=== PATIENT | female | born 1940 | race Caucasian/White ===

== ENCOUNTER 2017-12-22 23:24 | Emergency (ER) | payer MEDICARE, OTHER ==
[~2017-12-22] VITALS: Ht 152.4 cm; Wt 78.5 kg
[~2017-12-22 23:24] MED LIST: ALPRAZOLAM0.25 MG PO; ANT12.5; COL100 PO; CYCLOBENZAPRINE5 MG PO; LEXAPRO20 MG PO; NOR10 PO; NOR10T PO; TRAMADOL HCL50 MG PO
[2017-12-22 23:28] VITALS: Ht 152.4 cm; Wt 78.5 kg
[2017-12-23 01:27] LABS: CALCIUM 9.6 mg/dL (8.5-10.1); CARBON DIOXIDE 28.3 mmol/L (21-32); CHLORIDE SERUM 104 mmol/L (98-107); CREATININE SERUM 0.8 mg/dL (0.6-1.0); GLUCOSE SERUM 139 mg/dL (74-106); POTASSIUM SERUM 3.1 mmol/L (3.5-5.1); SODIUM SERUM 141 mmol/L (136-145)
[2017-12-23 01:31] LABS: ALKALINE PHOSPHATASE 101 U/L (46-116); ALT/SGPT 24 U/L (14-59); AST/SGOT 14 U/L (15-37); BILIRUBIN TOTAL 0.37 mg/dL (0.20-1.00); LIPASE 141 IU/L (73-393); TOTAL PROTEIN, SERUM 7.9 g/dL (6.4-8.2)
[2017-12-23 01:35] LABS: BASOPHIL % 0.2 % (0-2); PLATELET COUNT 216 x10^3mcL (130-400); RED CELL DISTRIBUTION WIDTH 14.1 % (11.5-14.5)
[2017-12-23] MEDS ORDERED: BENADRYL ALLERG25 MG (01:54)
[2017-12-23] MEDS ORDERED: HYDROCHLOROTH12.5 M2 (01:55)
[2017-12-23] MEDS ORDERED: OMEPRAZOLE5 GM (01:55)
[2017-12-23] MEDS ORDERED: GOOD SENSE OMEP20 MG (01:56)
[2017-12-23] MEDS ORDERED: CYMBALTA20 M1 (01:57)
[2017-12-23 02:16] LABS: UA SPECIFIC GRAVITY 1.015 (1.005-1.035); microscopic required? YES; urine erythrocyte 3+ (NEGATIVE)
[2017-12-23 05:00] VITALS: BP 148/77
== END 2017-12-23 05:00 | disposition short-term general hospital (02) ==
LOC: ED 23:24
PROVIDERS: Emergency Medicine
DX: N39.0 Urinary tract infection, site not specified (principal); N20.0 Calculus of kidney; I10 Essential (primary) hypertension; Z90.49 Acquired absence of other specified parts of digestive tract; Z88.2 Allergy status to sulfonamides
CPT/HCPCS: J0696; J1885; J2405; J7030

== ENCOUNTER 2018-01-30 10:31 | Inpatient (IN) | payer OTHER, MEDICARE ==
[~2018-01-30] VITALS: Ht 152.4 cm; Wt 76.3 kg
[~2018-01-30 10:31] MED LIST changes: +BENADRYL ALLERG25 MG; +CYMBALTA20 M1; +GOOD SENSE OMEP20 MG; +HYDROCHLOROTH12.5 M2; +OMEPRAZOLE5 GM
[2018-01-30 11:29] LABS: BASOPHIL % 0.3 % (0-2); PLATELET COUNT 225 x10^3mcL (130-400); RED CELL DISTRIBUTION WIDTH 14.4 % (11.5-14.5)
[2018-01-30 11:41] LABS: CARBON DIOXIDE 22.2 mmol/L (21-32); CHLORIDE SERUM 99 mmol/L (98-107); CREATININE SERUM 1.1 mg/dL (0.6-1.0); GLUCOSE SERUM 160 mg/dL (74-106); POTASSIUM SERUM 3.1 mmol/L (3.5-5.1); SODIUM SERUM 134 mmol/L (136-145)
[2018-01-30 11:49] LABS: microscopic required? YES; urine erythrocyte 2+ (NEGATIVE)
[2018-01-30 11:55] LABS: ALBUMIN 3.9 g/dL (3.4-5.0); ALKALINE PHOSPHATASE 88 U/L (46-116); ALT/SGPT 13 U/L (14-59); AST/SGOT 15 U/L (15-37); BILIRUBIN TOTAL 0.4 mg/dL (0.20-1.00); LIPASE 115 IU/L (73-393); TOTAL PROTEIN, SERUM 7.7 g/dL (6.4-8.2)
[2018-01-30 14:55] VITALS: Ht 152.4 cm; Wt 76.3 kg
[2018-01-30 17:35] VITALS: BP 151/59
[2018-01-30 21:31] VITALS: BP 129/56
[2018-01-31 05:12] VITALS: BP 135/61
[2018-01-31 06:33] LABS: CALCIUM 8.3 mg/dL (8.5-10.1); CARBON DIOXIDE 26.1 mmol/L (21-32); CHLORIDE SERUM 107 mmol/L (98-107); CREATININE SERUM 0.7 mg/dL (0.6-1.0); GLUCOSE SERUM 97 mg/dL (74-106); SODIUM SERUM 138 mmol/L (136-145)
[2018-01-31 06:36] LABS: POTASSIUM SERUM 2.9 mmol/L (3.5-5.1)
[2018-01-31 06:56] LABS: BASOPHIL % 0.4 % (0-2); PLATELET COUNT 195 x10^3mcL (130-400); RED CELL DISTRIBUTION WIDTH 14.7 % (11.5-14.5)
[2018-01-31 09:16] VITALS: BP 140/56
[2018-01-31 16:03] VITALS: BP 118/72
[2018-01-31 21:46] VITALS: BP 134/60
[2018-02-01 06:03] VITALS: BP 135/59
[2018-02-01 08:29] VITALS: BP 120/64
[2018-02-01 10:36] LABS: BASOPHIL % 0.4 % (0-2); PLATELET COUNT 175 x10^3mcL (130-400); RED CELL DISTRIBUTION WIDTH 13.1 % (11.5-14.5)
[2018-02-01 10:45] LABS: CARBON DIOXIDE 23.5 mmol/L (21-32); CHLORIDE SERUM 107 mmol/L (98-107); CREATININE SERUM 0.6 mg/dL (0.6-1.0); GLUCOSE SERUM 102 mg/dL (74-106); POTASSIUM SERUM 3.4 mmol/L (3.5-5.1); SODIUM SERUM 140 mmol/L (136-145)
[2018-02-01 12:07] VITALS: BP 138/63
[2018-02-01 16:23] VITALS: BP 133/67
[2018-02-01 21:03] VITALS: BP 138/48
[2018-02-02 05:12] VITALS: BP 127/67
[2018-02-02 05:49] LABS: BASOPHIL % 0.5 % (0-2); PLATELET COUNT 177 x10^3mcL (130-400); RED CELL DISTRIBUTION WIDTH 14.3 % (11.5-14.5)
[2018-02-02 06:13] LABS: CALCIUM 8.5 mg/dL (8.5-10.1); CARBON DIOXIDE 27.4 mmol/L (21-32); CHLORIDE SERUM 107 mmol/L (98-107); CREATININE SERUM 0.7 mg/dL (0.6-1.0); GLUCOSE SERUM 101 mg/dL (74-106); MAGNESIUM 1.5 mg/dL (1.8-2.4); PHOSPHOROUS 2.8 mg/dL (2.5-4.9); POTASSIUM SERUM 3.5 mmol/L (3.5-5.1); SODIUM SERUM 140 mmol/L (136-145)
[2018-02-02 08:27] VITALS: BP 130/69
[2018-02-02] MEDS ORDERED: TOR10 PO (12:32)
[2018-02-02 13:33] VITALS: BP 130/69
[2018-02-02 14:57] VITALS: BP 130/69
== END 2018-02-02 17:20 | disposition home or self-care (01) | DRG 710 ==
LOC: ED 10:31 → EDBEDREQ 13:13 → MU 13:13 → EDBEDREQSVC 13:13 → MU 14:03
PROVIDERS: Emergency Medicine; Family Medicine; Internal Medicine; Urology
PROC: 0T778DZ Dilation of Left Ureter with Intraluminal Device, Via Natural or Artificial Opening Endoscopic (ICD-10-PCS; 2018-01-31)
PROC: 0TC78ZZ Extirpation of Matter from Left Ureter, Via Natural or Artificial Opening Endoscopic (ICD-10-PCS; principal; 2018-01-31 14:00)
DX: A41.9 Sepsis, unspecified organism (principal); N17.0 Acute kidney failure with tubular necrosis; N13.2 Hydronephrosis with renal and ureteral calculous obstruction; E87.1 Hypo-osmolality and hyponatremia; E87.6 Hypokalemia; I10 Essential (primary) hypertension; R73.9 Hyperglycemia, unspecified; Z87.442 Personal history of urinary calculi; Z68.31 Body mass index [BMI] 31.0-31.9, adult; Z90.49 Acquired absence of other specified parts of digestive tract; Z82.49 Family history of ischemic heart disease and other diseases of the circulatory system; Z88.2 Allergy status to sulfonamides
CPT/HCPCS: 97530-GP; C1769; C2625; C9113; J0690; J0696; J1885; J2250; J2270; J3010; J3480; J7030; J7040